=== PATIENT | male | born 1950 | race Two or more races ===

== ENCOUNTER → 2020-10-18 08:29 | Outpatient (BNVA) | payer OTHER, SELFPAY | PROVIDERS: Visit Provider Nurse Practitioner Family | DX: M47.22 Other spondylosis with radiculopathy, cervical region (principal); M25.512 Pain in left shoulder; G89.29 Other chronic pain; Z79.899 Other long term (current) drug therapy | CPT/HCPCS: 99202 ==

== ENCOUNTER 2023-02-26 13:25 | Outpatient (AMB) | payer OTHER, SELFPAY ==
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
[2023-02-26 13:40] VITALS: BP 159/88; PULSE 70; RESP 14; O2SAT 98; BMI 23.4
== END 2023-02-26 14:20 | disposition home or self-care (01) ==
PROVIDERS: Visit Provider Registered Nurse Emergency
DX: G89.29 Other chronic pain (principal); G54.0 Brachial plexus disorders; M25.512 Pain in left shoulder; Z79.891 Long term (current) use of opiate analgesic; M43.02 Spondylolysis, cervical region
CPT/HCPCS: 99214

== ENCOUNTER 2023-02-26 13:25 | Outpatient (REF) | payer OTHER, SELFPAY ==
--- NOTE | ~2023-02-26 | XR_ITS ---
STUDY: Cervical spine and left shoulder INDICATION: Spondylolysis and the left shoulder pain TECHNIQUE: 8 view cervical spine inclusive of flexion and extension views, three-view left shoulder FINDINGS: Cervical spine: There is straightening of normal cervical lordosis. C5 vertebral body height loss likely degenerative. C5-C6 and C6-C7 disc space narrowings are seen. There is inadequate evaluation of C7 on lateral view. Bilateral C5-C6 neuroforaminal narrowings, left greater than right. On neutral view no listhesis identified. No appreciable change on flexion and extension views. Odontoid is intact, posterior elements are aligned and no prevertebral soft tissue swelling is seen. Metallic hyperdensities are identified overlying the right lung apex. Left shoulder: Left total shoulder replacement has been performed. Prosthetic components appear appropriate in position. Alignment is satisfactory. No evidence of acromioclavicular joint space narrowing. Visualized lung and ribs are unremarkable. XR/XR cervical spine w flex/ext IMPRESSION: Cervical spondylosis with flexion-extension views as described. Left total shoulder replacement without evidence of complication.
--- NOTE | ~2023-02-26 | XR_ITS ---
STUDY: Cervical spine and left shoulder INDICATION: Spondylolysis and the left shoulder pain TECHNIQUE: 8 view cervical spine inclusive of flexion and extension views, three-view left shoulder FINDINGS: Cervical spine: There is straightening of normal cervical lordosis. C5 vertebral body height loss likely degenerative. C5-C6 and C6-C7 disc space narrowings are seen. There is inadequate evaluation of C7 on lateral view. Bilateral C5-C6 neuroforaminal narrowings, left greater than right. On neutral view no listhesis identified. No appreciable change on flexion and extension views. Odontoid is intact, posterior elements are aligned and no prevertebral soft tissue swelling is seen. Metallic hyperdensities are identified overlying the right lung apex. Left shoulder: Left total shoulder replacement has been performed. Prosthetic components appear appropriate in position. Alignment is satisfactory. No evidence of acromioclavicular joint space narrowing. Visualized lung and ribs are unremarkable. XR/XR shoulder LT min 2V IMPRESSION: Cervical spondylosis with flexion-extension views as described. Left total shoulder replacement without evidence of complication.
== END 2023-02-26 13:26 | disposition home or self-care (01) ==
LOC: HO.XRAY 13:25
PROVIDERS: PCP Internal Medicine; Visit Provider Registered Nurse Emergency
DX: M47.22 Other spondylosis with radiculopathy, cervical region (principal); M25.512 Pain in left shoulder; M43.02 Spondylolysis, cervical region; F11.90 Opioid use, unspecified, uncomplicated
CPT/HCPCS: 72052; 73030; 99212

== ENCOUNTER 2023-04-01 10:20 | Outpatient (AMB) | payer OTHER, SELFPAY ==
[2023-04-01 11:03] VITALS: PULSE 67; RESP 14; O2SAT 98; BMI 23.4
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
== END 2023-04-01 11:25 | disposition home or self-care (01) ==
PROVIDERS: PCP Internal Medicine; Visit Provider Internal Medicine
DX: G54.0 Brachial plexus disorders (principal)
CPT/HCPCS: 64415

== ENCOUNTER → 2023-04-01 10:20 | Outpatient (BNVA) | payer OTHER, SELFPAY | PROVIDERS: PCP Internal Medicine; Visit Provider Internal Medicine | DX: G54.0 Brachial plexus disorders (principal) | CPT/HCPCS: 64415 ==

== ENCOUNTER 2023-04-05 10:46 | Outpatient (AMB) | payer OTHER, SELFPAY ==
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
[2023-04-05 11:16] VITALS: BP 129/72; PULSE 63; RESP 14; O2SAT 96; BMI 23.4
== END 2023-04-05 12:09 | disposition home or self-care (01) ==
PROVIDERS: PCP Internal Medicine; Visit Provider Internal Medicine
DX: G54.0 Brachial plexus disorders (principal)
CPT/HCPCS: 99213

== ENCOUNTER → 2023-04-05 10:46 | Outpatient (BNVA) | payer OTHER, SELFPAY | PROVIDERS: PCP Internal Medicine; Visit Provider Internal Medicine | DX: G54.0 Brachial plexus disorders (principal); S41.032D Puncture wound without foreign body of left shoulder, subsequent encounter; W34.00XD Accidental discharge from unspecified firearms or gun, subsequent encounter; Z96.611 Presence of right artificial shoulder joint; Z96.612 Presence of left artificial shoulder joint | CPT/HCPCS: 99212 ==

== ENCOUNTER → 2023-04-25 13:47 | Outpatient (BNVA) | payer OTHER, SELFPAY | PROVIDERS: PCP Internal Medicine; Visit Provider Registered Nurse Emergency ==

== ENCOUNTER → 2023-05-02 09:48 | Outpatient (BNVA) | payer OTHER, SELFPAY | PROVIDERS: PCP Internal Medicine; Visit Provider Registered Nurse Emergency ==

== ENCOUNTER 2023-10-09 12:50 | Day surgery (SDC) | payer OTHER, SELFPAY ==
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
--- NOTE | ~2023-10-09 | FL_ITS ---
EXAMINATION: XR FLUOROSCOPY WITH IMAGES CLINICAL INFORMATION: Cervical cord stim trial. COMPARISON: None available. TECHNIQUE: Fluoroscopy Supervised By: Dr. Brito. Fluoroscopy Time: 2.9. Cumulative Dose: 16.8 mGy. DAP: 1.86 Gycm2. Images: 5. FINDINGS: Fluoroscopic imaging provided for procedure supervised by images demonstrate stimulator wire along the cervical spine and partially imaged thoracic spine. Please refer to operative report for more detailed evaluation. FL/FL guidance in OR IMPRESSION: Fluoroscopic imaging provided for procedure. Please refer to operative report for more detailed evaluation.
[2023-10-09 13:47] VITALS: BMI 23.7
[2023-10-09 14:11] VITALS: BP 153/88; PULSE 64; RESP 16; TEMP 36.6; O2SAT 96
[2023-10-09] MEDS: Lactated Ringers 1,000 ML 100 ML IVCONT (14:43)
[2023-10-09 15:07] LABS: MRSA Nasal PCR NEGATIVE (Negative); SA Nasal PCR NEGATIVE (Negative)
--- NOTE | 2023-10-09 15:31 | MHC.SHP ---
Pre-Procedural Eval Section A - 24 Hr Update-Section A only Date of Service: 10/09/23 The patient is an INPATIENT: No Changes since office visit: Yes Patient answered all questions The patient has been examined within 24 hours of the surgical procedure. The History & Physical has been completed within 30 days and I have reviewed it.: No Section B - Complete if H&P > 30 days Chief Complaint: Brachial plexus disorders Relevant Family History (Specify if Yes): No Relevant Social History: None Present Medications: see Short Stay Collaborative assessment Medical History: No relevant PMH History of Previous Operations: No relevant previous surgery Allergies: Allergies Allergy/AdvReac Type Severity Reaction Status Date / Time No Known Allergies Allergy Mild NONE Verified 10/09/23 13:48 Review of Systems Sugical H&P ROS: Negative: Constitution, Cardiovascular and Respiratory Exam Surgical H&P Exam: Normal: Heart, Normal: Lungs and Normal: Extremities Plan Diagnosis/Plan: Unchanged I have reviewed the history and physical and performed a pertinent physical examination on my patient. No changes have occurred unless specified. Time Spent With Patient Time: Total time managing care of this patient today ____ minutes.
[2023-10-09 17:10] VITALS: BP 91/31; PULSE 59; RESP 15; TEMP 36.6; O2SAT 95
--- NOTE | 2023-10-09 17:10 | P.BOP_ITS ---
Brief Operative Note Date of Service: 10/09/23 Pre-op diagnosis: Complex regional pain syndrome, left upper extremity Post-op diagnosis: same Procedure: Cervical spinal cord stimulation trial Implants: Nevro cervical spinal cord stimulation trial lead Surgeon: Kali Brito MD Anesthesia: MAC Was an Archival Studies Professor used for this Procedure?: No Estimated blood loss (mL): 1 Pathology: none sent Condition: stable Disposition: PACU
--- NOTE | 2023-10-09 17:11 | P.OP_ITS ---
Operative Note Operative Note Date of Service: 10/09/23 Narrative: Percutaneous Spinal Cord Stimulator Trial, Cervical After obtaining written consent, pre-procedure blood pressure and heart rate were recorded and are in the nursing record for review. A peripheral IV was sta rted. Antibiotics, cefazolin 2 gram, were given intraoperatively. The patient was placed in a prone position.? The patient was sedated by the anesthesiologist. The cervicothoracic area was widely prepped with ChloraPrep, allowed to dry and draped in sterile fashion. Fluoroscopy was used to identify the target interlaminar spaces and appropriate needle insertion sites. The skin and subcutaneous tissue was anesthetized with 0.5% lidocaine. A 14 gauge coude epidural needle was advanced from this point in a paramedian approach to the epidural space opening at T7-8 interspace, where loss of resistance was found using air. No paresthesias were elicited with needle placement. No CSF or heme was present upon needle placement. A guide wire was then used to confirm placement into the epidural space under live fluoroscopy. A 1x8 stimulator lead wire was then threaded to the top of C3 in the slightly left of midline position under live fluoroscopy. The lead advanced midline and dorsally. The needle was then completely removed under live fluoroscopy. The stimulator wire was then secured with with an anchor and 1 0 Tycron suture securing the anchor. The anchor was dressed with gauze and tegaderm for skin dressing. The patient tolerated the procedure well and no complications were encountered. Following the procedure the patient's vital signs were stable. The patient was discharged home in good condition after being given discharge instructions. Time Out: Immediately prior to the procedure, the following was verbally confirmed that there is a signed consent form and that the correct patient, planned procedure, site and side are consistent with documentation and that necessary equipment and/or blood products are available prior to the start of the case. Complications: none EBL: <2 cc
[2023-10-09 17:25] VITALS: BP 96/58; PULSE 63; RESP 16; O2SAT 96
[2023-10-09 17:40] VITALS: BP 113/59; PULSE 56; RESP 16; O2SAT 95
[2023-10-09 17:55] VITALS: BP 124/64; PULSE 60; RESP 16; TEMP 36.3; O2SAT 96
== END 2023-10-09 18:13 | disposition home or self-care (01) ==
PROVIDERS: Registered Nurse Emergency; PCP Internal Medicine; Visit Provider Internal Medicine
PROC: (CPT 63650; principal; 2023-10-09 15:50)
DX: G54.0 Brachial plexus disorders (principal); Z87.828 Personal history of other (healed) physical injury and trauma; Z98.890 Other specified postprocedural states; M25.512 Pain in left shoulder; I10 Essential (primary) hypertension; E78.5 Hyperlipidemia, unspecified; E03.9 Hypothyroidism, unspecified; F11.20 Opioid dependence, uncomplicated; Z79.899 Other long term (current) drug therapy; Z79.82 Long term (current) use of aspirin; Z96.612 Presence of left artificial shoulder joint; Z96.611 Presence of right artificial shoulder joint; Z87.891 Personal history of nicotine dependence
CPT/HCPCS: 63650 ×2; 87640; 87641; A4364; C1889; C1897; J0690; J2704

== ENCOUNTER → 2023-10-09 12:50 | Outpatient (BNV) | payer OTHER, SELFPAY | PROVIDERS: PCP Internal Medicine; Visit Provider Internal Medicine | DX: G90.512 Complex regional pain syndrome I of left upper limb (principal) | CPT/HCPCS: 63650 ==

== ENCOUNTER 2023-10-16 10:00 | Outpatient (AMB) | payer OTHER, SELFPAY ==
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
[2023-10-16 10:05] VITALS: BP 138/72; PULSE 70; RESP 14; O2SAT 95; BMI 25.5
== END 2023-10-16 10:39 | disposition home or self-care (01) ==
PROVIDERS: PCP Internal Medicine; Visit Provider Internal Medicine
DX: G54.0 Brachial plexus disorders (principal)
CPT/HCPCS: 99024

== ENCOUNTER → 2023-10-16 10:00 | Outpatient (BNVA) | payer OTHER, SELFPAY | PROVIDERS: PCP Internal Medicine; Visit Provider Internal Medicine | DX: G54.0 Brachial plexus disorders (principal); M96.1 Postlaminectomy syndrome, not elsewhere classified | CPT/HCPCS: 99212 ==

== ENCOUNTER 2023-10-23 08:46 | Outpatient (AMB) | payer OTHER, SELFPAY ==
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
[2023-10-23 08:58] VITALS: BP 137/68; PULSE 72; RESP 14; O2SAT 97; BMI 25.3
== END 2023-10-23 09:14 | disposition home or self-care (01) ==
PROVIDERS: PCP Internal Medicine; Visit Provider Internal Medicine
DX: M43.02 Spondylolysis, cervical region (principal); G54.0 Brachial plexus disorders
CPT/HCPCS: 99213

== ENCOUNTER → 2023-10-23 08:46 | Outpatient (BNVA) | payer OTHER, SELFPAY | PROVIDERS: PCP Internal Medicine; Visit Provider Internal Medicine | DX: M43.02 Spondylolysis, cervical region (principal); G54.0 Brachial plexus disorders | CPT/HCPCS: 99212 ==

== ENCOUNTER 2023-12-23 15:57 | Outpatient (REF) | payer OTHER, SELFPAY ==
--- NOTE | ~2023-12-23 | CT_ITS ---
EXAMINATION: CT CERVICAL SPINE WITHOUT CONTRAST CLINICAL INFORMATION: Cervical spondylosis COMPARISON: Cervical spine x-ray on 02/26/2023 TECHNIQUE: Multiple 2.0 mm axial images were obtained from base of skull to T1 levels without IV contrast enhancement. Sagittal and coronal 2.0 mm bone window images were reconstructed from axial image data. This CT examination was performed using dose optimization techniques as appropriate, variously including the following: *Automated exposure control *Adjustment of mA and/or kV according to patient size (this includes techniques or standardized protocols for targeted exams where dose is matched to indication/reason for exam; i.e. extremities or head) *Use of iterative reconstruction technique DLP: 392.8 mGy-cm FINDINGS: C1/C2: Bony structures are intact with normal alignment. Extensive calcification of the transverse ligament is seen. There is no spinal stenosis. C2/C3: Bony structures are intact with normal alignment. There is no spinal stenosis. Bilateral C2/C3 neuroforamina are patent. Bilateral apophyseal joints are intact with normal alignment. C3/C4: Bony structures are intact with normal alignment. There is no spinal stenosis. Bilateral C3/C4 neuroforamina are patent. Bilateral apophyseal joints are intact with normal alignment. C4/C5: Bony structures are intact with normal alignment. Prominent anterior superior C5 syndesmophyte is present. There is no spinal stenosis. Bilateral C4/C5 neuroforamina are patent. Bilateral apophyseal joints are intact with normal alignment. C5/C6: Bony structures are intact with posterior C5 on C6 displacement by 0.3 cm. There is marked decrease in intervertebral disc height. Prominent anterior C5 and C6 syndesmophytes are present.. There is no spinal stenosis. Bilateral C5/C6 neuroforamina are markedly stenosed, more severe on the left side. Bilateral apophyseal joints are intact with normal alignment. C6/C7: Bony structures are intact with normal alignment. There is no spinal stenosis. Bilateral C6/C7 neuroforamina are patent. Bilateral apophyseal joints are intact with normal alignment. C7/T1: Bony structures are intact with normal alignment. There is no spinal stenosis. Bilateral C7/T1 neuroforamina are patent. Bilateral apophyseal joints are intact with normal alignment. Multilevel bilateral apophyseal joint and uncovertebral joint osteoarthritis with loss of joint space, sclerosis, facet hypertrophy and osteophytosis are seen. 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 Bilateral apical fibrotic scars are seen in the lungs, more prominent on the right side. CT/CT cervical spine wo IV con IMPRESSION: 1. No evidence of acute fracture or dislocation. 2. Multilevel cervical spondylosis including advanced C5-C6 degenerative cervical disc disease, prominent syndesmophytes marked bilateral C5/C6 neural foraminal stenosis, more severe on the left side. 3. No evidence of spinal stenosis. Fleischner guidelines were followed.
== END 2023-12-23 15:58 | disposition home or self-care (01) ==
LOC: HO.CT 15:57
PROVIDERS: Visit Provider Internal Medicine
DX: M43.02 Spondylolysis, cervical region (principal); G54.0 Brachial plexus disorders
CPT/HCPCS: 72125

== ENCOUNTER 2024-01-22 09:56 | Day surgery (SDC) | payer OTHER, SELFPAY ==
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
--- NOTE | ~2024-01-22 | FL_ITS ---
EXAMINATION: XR FLUOROSCOPY WITH IMAGES CLINICAL INFORMATION: Neural stimulator placement COMPARISON: CT cervical spine 12/23/2023. TECHNIQUE: Fluoroscopy provided to: Dr. Brito Fluoroscopy time: 5 minutes DAP: 6.8755 mGycm2 Images: 6 FINDINGS: 6 sequential spot images of the dorsal and lateral cervical, cervicothoracic, and thoracolumbar spine show stimulator placement with generator pack to the right of the L2-3 vertebral bodies, and lead extending into the dorsal epidural space of the cervical spine, terminating at the C2 mid posterior neural arch. FL/FL guidance in OR IMPRESSION: Fluoroscopic guidance. Please refer to the full operative report for details. Electronically signed by: Jacob Mcclellan MD 03/20/2024 03:00 PM EDT
[2024-01-22 11:23] VITALS: BP 175/84; PULSE 52; RESP 16; TEMP 36.9; O2SAT 96; BMI 24.9
[2024-01-22] MEDS: Lactated Ringers 1,000 ML 100 ML IVCONT (11:42)
[2024-01-22 12:59] LABS: MRSA Nasal PCR NEGATIVE (Negative); SA Nasal PCR NEGATIVE (Negative)
--- NOTE | 2024-01-22 13:58 | MHC.SHP ---
Pre-Procedural Eval Section A - 24 Hr Update-Section A only Date of Service: 01/22/24 The patient is an INPATIENT: No Changes since office visit: Yes Patient answered all questions The patient has been examined within 24 hours of the surgical procedure. The History & Physical has been completed within 30 days and I have reviewed it.: No Section B - Complete if H&P > 30 days Chief Complaint: Brachial plexus disorders Relevant Family History (Specify if Yes): No Relevant Social History: None Present Medications: see Short Stay Collaborative assessment Medical History: No relevant PMH History of Previous Operations: No relevant previous surgery Allergies: Allergies Allergy/AdvReac Type Severity Reaction Status Date / Time No Known Allergies Allergy Mild NONE Verified 10/23/23 08:59 Review of Systems Sugical H&P ROS: Negative: Constitution, Cardiovascular and Respiratory Exam Surgical H&P Exam: Normal: HEENT, Normal: Heart and Normal: Lungs Plan Diagnosis/Plan: Unchanged I have reviewed the history and physical and performed a pertinent physical examination on my patient. No changes have occurred unless specified. Time Spent With Patient Time: Total time managing care of this patient today ____ minutes.
[2024-01-22 16:54] VITALS: BP 110/65; PULSE 68; RESP 13; TEMP 36.1; O2SAT 97
--- NOTE | 2024-01-22 16:57 | PM.OP ---
Brief Operative Note Date of Service: 01/22/24 Pre-op diagnosis: Complex regional pain syndrome, left upper extremity Post-op diagnosis: same Procedure: Cervical spinal cord stimulator implant Implants: Never HFX SCS lead and IPG Surgeon: Kali Brito MD Anesthesia: MAC Was an Certified Hearing Instrument Dispenser used for this Procedure?: No Estimated blood loss (mL): 20 Pathology: none sent Condition: stable Disposition: PACU
[2024-01-22 16:59] VITALS: BP 123/68; PULSE 69; RESP 14; O2SAT 99
--- NOTE | 2024-01-22 16:59 | W.PM.OPN ---
Operative Note Operative Note Date of Service: 01/22/24 Narrative: Cervical SCS Implant After proper identification, the patient was brought to the operating room. After prone positioning, patient was sedated under anesthesia. Care was taken during positioning to protect and pad all pressure points. Cefazolin 2gm was given as preoperative antibiotic prophylaxis. The back was prepped and draped in the usual sterile fashion using Chloroprep. The fluoroscope unit was sterilely draped and brought into field, the vertebral target at the T9-10 interspace was localized with fluoroscopy. The skin was anesthetized with 0.25% bupivicaine with 1:200,000 epinephrine and 1% lidocaine using a 25-gauge needle. A 14 gauge introducer epi med needle was then advanced using AP and contralateral oblique fluoroscopy views to the target interspace on the left side of the T10 spinous process. Upon loss of resistance, a flexible stylet was advanced and verified to be in the epidural space.? The electrode was then threaded up to the middle of C2 vertebral body. The lead advanced dorsally and in midline. Once the lead was in position, a paravertebral incision was made superior to the needle entry site and the tissue was dissected down until a portion of the needle was internalized within the dissected tissue. With the needle covering the lead, two sets of 0 Tycron sutures were then placed for the anchor stitches. We then backed out the needle under live fluoroscopy, verifying that the electrodes were in the correct position. The lead was then pulled completely into the incision site. We then used the locking anchors to secure the electrodes down to the prevertebral fascia, tying them down with the Tycron sutures. At this point, a pocket for the generator was made in the left flank. With the skin and subcutaneous tissues anesthetized with 0.25% bupivicaine with 1:200,000 epinephrine and 1% lidocaine, a horizontal 5.5 cm incision was made using a 15 blade and combination of sharp dissection, blunt dissection and electrocautery was used. A pocket was created about half an inch below the skin. The pocket was then irrigated with normal saline containing vancomycin. Hemostasis was attained with electrocautery. We then tunneled the electrode from the back into the pocket using the tunneling device. The electrode was then connected to the generator. A single Tycron suture was thrown across the floor of the pocket and through the medial anchor hold of the generator. After interrogation with impedance check the generator was placed into the subcutaneous pocket and the anchoring suture tied. Care was taken not to get fluid in the generator connector block. The excess lead was closed beneath the generator creating a loop of strain relief as well. The neurostimulator generator was placed parallel to the skin at a depth of half an inch along for successful telemetry and impedence. The pocket was reirrigated and closed with the generator name facing out. Final electronic analysis was performed to ensure proper functioning. Positioning of the lead was rechecked and confirmed with fluoroscopy and images saved. Both incisions were closed with a deep layer of 2-0 Vicryl sutures, the deep dermal layer with 3-0 Vicryl sutures. We then secured the incision with Exofin, steristrips and OpSites over both incisions. The patient tolerated the procedure well. The patient was then flipped back into the supine position, woken up and brought to the PACU in stable condition. Complications: None EBL: 20 mL
[2024-01-22 17:04] VITALS: BP 117/62; PULSE 69; RESP 16; O2SAT 94
[2024-01-22 17:09] VITALS: BP 104/83; PULSE 78; RESP 16; O2SAT 94
[2024-01-22] MEDS: oxyCODONE HCl Immed Release 5 MG TABLET PO (17:15)
[2024-01-22 17:24] VITALS: BP 156/88; PULSE 71; RESP 16; TEMP 36.2; O2SAT 95
== END 2024-01-22 17:44 | disposition home or self-care (01) ==
PROVIDERS: Registered Nurse Emergency; PCP Internal Medicine; Visit Provider Internal Medicine
PROC: (CPT 63685; principal; 2024-01-22 13:00)
DX: G54.0 Brachial plexus disorders (principal); M43.02 Spondylolysis, cervical region; Z79.82 Long term (current) use of aspirin; Z79.899 Other long term (current) drug therapy; Z87.828 Personal history of other (healed) physical injury and trauma; I10 Essential (primary) hypertension; E78.5 Hyperlipidemia, unspecified; E03.9 Hypothyroidism, unspecified; F32.A Depression, unspecified; F41.9 Anxiety disorder, unspecified; Z96.612 Presence of left artificial shoulder joint; Z96.611 Presence of right artificial shoulder joint; Z87.891 Personal history of nicotine dependence
CPT/HCPCS: 63685; 63650 ×2; 87640; 87641; A4364; C1778; C1787; C1816; C1889; J0690; J1100; J2250; J2371; J2405; J2704; J2795; J3010; J3370

== ENCOUNTER → 2024-01-22 09:56 | Outpatient (BNV) | payer OTHER, SELFPAY | PROVIDERS: PCP Internal Medicine; Visit Provider Internal Medicine | DX: G90.50 Complex regional pain syndrome I, unspecified (principal) | CPT/HCPCS: 63650; 63685 ==

== ENCOUNTER 2024-01-31 10:19 | Outpatient (AMB) | payer OTHER, SELFPAY ==
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
[2024-01-31 10:34] VITALS: BP 140/74; PULSE 80; RESP 14; O2SAT 95; BMI 24.9
== END 2024-01-31 11:07 | disposition home or self-care (01) ==
PROVIDERS: PCP Internal Medicine; Visit Provider Internal Medicine
DX: G54.0 Brachial plexus disorders (principal)
CPT/HCPCS: 99024

== ENCOUNTER → 2024-01-31 10:19 | Outpatient (BNVA) | payer OTHER, SELFPAY | PROVIDERS: PCP Internal Medicine; Visit Provider Internal Medicine | DX: G54.0 Brachial plexus disorders (principal) | CPT/HCPCS: 99212 ==

== ENCOUNTER 2024-02-05 09:26 | Outpatient (AMB) | payer OTHER, SELFPAY ==
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
[2024-02-05 09:49] VITALS: BP 175/79; PULSE 67; RESP 14; O2SAT 96; BMI 24.9
== END 2024-02-05 10:21 | disposition home or self-care (01) ==
PROVIDERS: PCP Internal Medicine; Visit Provider Internal Medicine
DX: G54.0 Brachial plexus disorders (principal)
CPT/HCPCS: 99213

== ENCOUNTER → 2024-02-05 09:26 | Outpatient (BNVA) | payer OTHER, SELFPAY | PROVIDERS: PCP Internal Medicine; Visit Provider Internal Medicine | DX: G54.0 Brachial plexus disorders (principal) | CPT/HCPCS: 99212 ==

== ENCOUNTER 2024-05-20 09:58 | Outpatient (AMB) | payer OTHER, SELFPAY ==
[2024-05-20 11:34] VITALS: BP 120/78; PULSE 88; RESP 15; O2SAT 98; BMI 24.9
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
== END 2024-05-20 11:54 | disposition home or self-care (01) ==
PROVIDERS: PCP Internal Medicine; Visit Provider Internal Medicine
DX: G54.0 Brachial plexus disorders (principal)
CPT/HCPCS: 99213

== ENCOUNTER → 2024-05-20 09:58 | Outpatient (BNVA) | payer OTHER, SELFPAY | PROVIDERS: PCP Internal Medicine; Visit Provider Internal Medicine | DX: G54.0 Brachial plexus disorders (principal) | CPT/HCPCS: 99212 ==

== ENCOUNTER → 2024-05-29 09:40 | Outpatient (BNVA) | payer OTHER, SELFPAY | PROVIDERS: PCP Internal Medicine; Visit Provider Internal Medicine ==

== ENCOUNTER 2024-06-29 09:46 | Outpatient (AMB) | payer OTHER, SELFPAY ==
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
[2024-06-29 10:36] VITALS: BP 152/73; PULSE 74; RESP 16; O2SAT 97; BMI 24.7
== END 2024-06-29 10:51 | disposition home or self-care (01) ==
PROVIDERS: PCP Internal Medicine; Visit Provider Internal Medicine
DX: G54.0 Brachial plexus disorders (principal); Z96.82 Presence of neurostimulator
CPT/HCPCS: 99214

== ENCOUNTER 2024-06-29 09:46 | Outpatient (REF) | payer OTHER, SELFPAY ==
--- NOTE | ~2024-06-29 | XR_ITS ---
CLINICAL HISTORY: G54.0 - Brachial plexus disorders 3 views cervical spine Comparison: None Findings: Normal alignment. No acute fractures or dislocation. There is multilevel disc space narrowing. Multilevel cervical spine osteophytes. There is 2 mm posterior listhesis C5 on C6. Prevertebral soft tissues within normal limits. There is a spinal catheter within the cervical spine tip extends to C2. There is multilevel cervical spondylosis multilevel disc space narrowing anterior and posterior osteophytes. No acute fractures. IMPRESSION: Multilevel spondylosis, no acute fractures This document has been electronically signed by: Rip English MD on 07/01/2024 08:53:16
== END 2024-06-29 09:47 | disposition home or self-care (01) ==
LOC: HO.XRAY 09:46
PROVIDERS: PCP Internal Medicine; Visit Provider Internal Medicine
DX: G54.0 Brachial plexus disorders (principal); Z96.82 Presence of neurostimulator; Z79.899 Other long term (current) drug therapy
CPT/HCPCS: 72040; 99212

== ENCOUNTER → 2024-06-29 11:00 | Outpatient (BNV) | payer OTHER, SELFPAY | PROVIDERS: PCP Internal Medicine; Visit Provider Radiology Diagnostic Radiology | DX: M47.892 Other spondylosis, cervical region (principal) | CPT/HCPCS: 72040 ==